=== PATIENT | male | born 1945 | race Caucasian/White ===

== ENCOUNTER 2020-02-17 11:42 | Observation (INO) ==
--- NOTE | 2020-02-17 11:59 | ERNOTE ---
Syncope ER HPI Date of Service: 02/17/20 Stated Complaint: fall Time Seen by Provider: 02/17/20 11:46 Source: patient, RN notes reviewed, past records Exam Limitations: no limitations Immunizations: IMMUNIZATION HX Immunizations Up to Date Yes History of Influenza Vaccine No Hx Pneumococcal Vaccination No Allergies/Adverse Reactions: Allergies adhesive Allergy (Severe, Verified 02/17/20 12:02) Hives pregabalin [From Lyrica] Allergy (Severe, Verified 02/17/20 12:02) Other silicone Allergy (Verified 02/17/20 12:02) benazepril [From Lotensin] Adverse Reaction (Mild, Verified 02/17/20 12:02) Other impotence cephalexin [From Keflex] Adverse Reaction (Mild, Verified 02/17/20 12:02) Diarrhea cyclobenzaprine [From Flexeril] Adverse Reaction (Mild, Verified 02/17/20 12:02) Hives Home Medications: HOME MEDICATIONS fluticasone propionate 50 mcg/actuation nasal spray,suspension 2 spray PETAR DAILY #9.9 g 09/24/18 [Last Taken Unknown] hydrocortisone 2.5 % lotion 1 applic TP BID #118 ml 03/25/19 [Last Taken Unknown] meloxicam 7.5 mg tablet 7.5 mg PO DAILY 03/25/19 [Last Taken Unknown] amlodipine 10 mg tablet 10 mg PO DAILY #90 tab 06/18/19 [Last Taken Unknown] gabapentin 300 mg capsule 300 mg PO HS #90 cap 06/18/19 [Last Taken Unknown] glipizide 5 mg tablet, extended release 24 hr 5 mg PO DAILY #90 tab 06/18/19 [Last Taken Unknown] losartan 50 mg tablet See Rx Instructions .ROUTE .COMPLEX #90 tablet 06/18/19 [Last Taken Unknown] atenolol 50 mg tablet 50 mg PO DAILY #90 tab 07/17/19 [Last Taken Unknown] metformin 500 mg tablet 500 mg PO BID #60 tab 09/13/19 [Last Taken Unknown] oxcarbazepine 300 mg tablet See Rx Instructions PO DAILY #100 tab 09/13/19 [Last Taken Unknown] - History of Present Illness Narrative: Juan R is a 74-year-old male brought to the emergency department by ambulance after a syncopal episode. He reports that he was still sitting on the toilet after having a bowel movement when he felt disoriented. He states that he could not figure out how to get the toilet paper off of the roll. He apparently then fell forward onto the floor and was briefly unconscious. He initially did not want to be transported to the hospital, but when EMS attempted to help him get up he was very weak and unsteady. He underwent an extensive plastic surgery at the [facility] on 01/26 for osteomyelitis and a wound that would not heal in his left lower leg. He is cu rrently on Augmentin and doxycycline. He reports that he has been having diarrhea but it is only once a day. He denies any head injury or headache. Prior Episodes: Present: single episode today Character of event: Present: brief (seconds) Location of Injury: Present: none Current Symptoms: Present: back to normal Prior Treament: Reports: recently seen, recently hospitalized, currently on antibiotics Review of Systems - Review of Systems Constitutional: Present: recent illness. Absent: fever, chills EYE: Absent: eye pain, vision changes ENT: Present: no symptoms reported Respiratory: Absent: shortness of breath, cough Cardiology: Present: syncope. Absent: chest pain, palpitations Gastrointestinal/Abdominal: Present: diarrhea. Absent: nausea, vomiting, abdominal pain Genitourinary: Absent: frequency, dysuria Musculoskeletal: Present: muscle pain. Absent: neck pain Skin: Absent: lumps, change in color Neurological: Absent: headache, dizziness/light-headedness, weakness Endocrine: Present: no symptoms reported Hematologic/Lymphatic: Absent: easy bruising, easy bleeding Psych: Present: no symptoms reported Medical History (Last Reviewed 02/17/20 @ 16:42 by Vira Morales NP) Cellulitis Onset Date: ~11/2017 seen in ER Anemia Onset Date: Unknown Diabetes mellitus Onset Date: Unknown Hypertension Onset Date: Unknown Hypertrophy of prostate with urinary obstruction Onset Date: 04/15/15 Obstructive sleep apnea Onset Date: Unknown Peripheral neuropathy Onset Date: Unknown Angina pectoris Onset Date: Unknown Contact dermatitis Onset Date: 06/01/13 near left naris, due to MADDIE Diaphoresis Onset Date: 01/16/15 Folliculitis Onset Date: 02/07/17 Hemorrhoids Onset Date: ~02/2010 mild internal History of chemotherapy Hx of lymphoma Hx of melanoma of skin Onset Date: ~1984 Kidney stone on left side Onset Date: ~1968 Left shoulder pain Onset Date: 07/27/15 Lymphedema Onset Date: Unknown right arm Nasal fracture Onset Date: 06/01/13 nodisplaced Thumb injury Onset Date: 01/29/15 left Trigeminal neuralgia Onset Date: Unknown Surgical History: Surgical History (Last Reviewed 02/17/20 @ 16:42 by Vira Morales NP) Cancer treatment Hemorrhoids, internal Onset Date: 03/19/10 hemorrhoid banding History of colonoscopy Onset Date: 03/19/10 normal, mild internal hemorrhoids- Dr Angelo History of lithotripsy Onset Date: ~2006 History of lymph node excision Onset Date: Unknown right axilla-1997, right cervical-1998 History of surgical removal of skin lesion Onset Date: ~1984 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 Father Hypertension Prostate cancer Pacemaker Sister Melanoma Social History: (Last Reviewed 02/17/20 @ 16:43 by Vira Morales NP) Social History: Marital status: household members: spouse number of children: 4 current occupational status: disabled Highest education level completed: Bachelor's degree Service: No Tobacco: Smoking Status: Never smoker Alcohol: alcohol intake: never Substance Use: substance use type: does not use Dietary Habits: caffeine: Yes Type: carbonated beverages Physical Exam - Physical Exam General Appearance: Present: wd/wn, alert, no apparent distress Head Exam: Present: normal inspection, no evidence of injury Eye Exam: Normal inspection: bilateral Neck: Present: normal inspection, nontender, supple, full range of motion Respiratory: Present: no respiratory distress, normal breath sounds, no accessory muscle use, lungs clear Cardiovascular/Chest: Present: regular rate, rhythm, no murmur Gastrointestinal/Abdominal: Present: nontender, nondistended, soft Neurological Exam: Present: alert, oriented, normal mood/affect, other - pre- existing motor defecit to right arm. Absent: no motor/sensory deficits Skin Exam: Present: normal color, warm/dry Progress - Results and Orders Patient's Lab Results:: I have reviewed the patient's lab results. - Vital Signs Patient's Vital Signs:: I have reviewed the patient's vital signs. Vital Signs: Vital Signs 02/17/20 11:44 Temperature 36.3 C Pulse Rate 75 Respiratory Rate 12 Blood Pressure 123/72 O2 Sat by Pulse Oximetry 97 - EKG EKG #1 EKG: NSR EKG read: Reviewed by me - CT/Ultrasound CT/Ultrasound Narrative: Head CT is without acute intracranial findings - Progress/Reassessment Chief Complaint: Fall Progress:: Unchanged Plan - Plan Plan: The patient initially had a potassium of 5.5. There was a delay in obtaining IV access and anesthesia was finally contacted to start an IV. He was given a liter of normal saline and his potassium was repeated. The level sandra to 6. Dr. Velasco was contacted and the patient will be admitted to observation status. Departure Clinical Impression: Acute hyperkalemia - Departure Disposition: Still a patient Condition: Stable Referrals: Rod Bradley MD [Primary Care Provider] -
[2020-02-17 13:20] LABS: Albumin * 3.4 gm/dl (3.4-5.0); Anion Gap 20.9 mmol/L (6.8-13.8); Bilirubin, Total 0.5 mg/dL (0.0-1.1); Ca. Corrected For Albumin 9.8 mg/dL (8.4-10.2); Calcium * 9.6 mg/dL (7.9-10.9); Carbon Dioxide 21.6 mmol/L (24-32.6); Potassium 5.5 mmol/L (3.4-4.6); Total Protein 7.8 gm/dL (6.2-8.2)
[2020-02-17 13:41] LABS: Urine Bilirubin Negative (NEGATIVE); Urine Ketone Negative (NEGATIVE); Urine Nitrite Negative (NEGATIVE); Urine Protein Negative (NEGATIVE); Urine Specific Gravity >=1.030 SP.GR. (1.005-1.030); Urine Urobilinogen Normal (NORMAL)
[2020-02-17 13:43] LABS: Hematocrit 46.9 % (42.0-52.0); Mean Corpuscular Hemoglobin 32.6 pg (27-31); Mean Platelet Volume 10.4 fl (8-11.3); Neutrophil # 5.8 K/mm3 (1.3-6.0); Neutrophil % 77.4 % (42-75.0); Platelet Count 179 K/mm3 (150-450); Red Cell Distribution Width 12.5 % (11.5-14.0); White Blood Count 7.5 K/mm3 (4.0-10.5)
[2020-02-17] MEDS ORDERED: NORMAL SALINE 1,000 ML IV ONE ×2 (13:51→18:06)
[2020-02-17 13:59] LABS: Urine Appearance Clear (CLEAR); Urine Blood 5 /ul (NEGATIVE); Urine Color Yellow
[2020-02-17 14:00] LABS: Urine Bacteria None Seen; Urine RBC TRACE /hpf (0-5); Urine WBC None Seen /hpf (0-5)
--- NOTE | 2020-02-17 15:49 | ANES ---
Anesthesia Procedure Note Procedure Note: ANESTHESIA PROCEDURE NOTE Date of Procedure: 02/17/2020 Time of procedure: 1520 p.m. Performed by: BERNARDO Diez CRNA, MSN Preprocedure diagnosis: Dehydration, hyperkalemia, lack of venous access. Post procedure diagnosis: Same. Procedure: Venipuncture for IV access. Indications: Hyperkalemia and lack of IV access. Findings: See below. Details of the procedure: The patient was prepped with Betadine and alcohol after the left wrist and hand were warmed with a warm washcloths for several minutes. A very small vein did momentarily become visible and a 24-gauge IV catheter was cannulated. The catheter flushed without resistance and Mr. Burks tolerated the procedure very well. EBL: Minimal. Fluids: N/A. Specimen: N/A. Post procedure condition: The patient tolerated the procedure well. No complications were noted. Thank you for this consultation. Carlos Govea CRNA, ARNP, MSN
--- NOTE | 2020-02-17 19:33 | HP ---
Chief Complaint - Chief Complaint Date of Service: 02/17/20 Time of Service: 19:08 Chief Complaint: Syncope with collapse. Weakness. Hyperkalemia. History of Present Illness: Juan R is a 74-year-old male brought to the emergency department by ambulance after a syncopal episode. He reports that he was still sitting on the toilet after having a bowel movement when he felt disoriented. He states that he could not figure out how to get the toilet paper off of the roll. He apparently then fell forward onto the floor and was briefly unconscious. He initially did not want to be transported to the hospital, but when EMS attempted to help him get up he was very weak and unsteady. He underwent an extensive plastic surgery at the [facility] [place] on 01/26 for osteomyelitis and a wound that would not heal in his left lower leg. He is currently on Augmentin and doxycycline. He reports that he has been having diarrhea but it is only once a day. He denies any head injury or headache. In reviewing his chart he otherwise has fairly normal lab values. His kidney function is adequate. He is taking losartan which is potassium sparing so I will hold that medicine. He is also on amlodipine for blood pressure. Medical History (Last Reviewed 02/17/20 @ 18:58 by Aggie Powers RN) Cellulitis Onset Date: ~11/2017 seen in ER Anemia Onset Date: Unknown Diabetes mellitus Onset Date: Unknown Hypertension Onset Date: Unknown Hypertrophy of prostate with urinary obstruction Onset Date: 04/15/15 Obstructive sleep apnea Onset Date: Unknown Peripheral neuropathy Onset Date: Unknown Angina pectoris Onset Date: Unknown Contact dermatitis Onset Date: 06/01/13 near left naris, due to MADDIE Diaphoresis Onset Date: 01/16/15 Folliculitis Onset Date: 02/07/17 Hemorrhoids Onset Date: ~02/2010 mild internal History of chemotherapy Hx of lymphoma Hx of melanoma of skin Onset Date: ~1984 Kidney stone on left side Onset Date: ~1968 Left shoulder pain Onset Date: 07/27/15 Lymphedema Onset Date: Unknown right arm Nasal fracture Onset Date: 06/01/13 nodisplaced Thumb injury Onset Date: 01/29/15 left Trigeminal neuralgia Onset Date: Unknown Surgical History: Surgical History (Last Reviewed 02/17/20 @ 18:58 by Aggie Powers RN) Cancer treatment Hemorrhoids, internal Onset Date: 03/19/10 hemorrhoid banding History of colonoscopy Onset Date: 03/19/10 normal, mild internal hemorrhoids- Dr Angelo History of lithotripsy Onset Date: ~2006 History of lymph node excision Onset Date: Unknown right axilla-1997, right cervical-1998 History of surgical removal of skin lesion Onset Date: ~1984 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 Father Hypertension Prostate cancer Pacemaker Sister Melanoma Social History: (Last Reviewed 02/17/20 @ 18:59 by Aggie Powers RN) Social History: Marital status: household members: spouse number of children: 4 current occupational status: disabled Highest education level completed: Bachelor's degree Service: No Tobacco: Smoking Status: Never smoker Alcohol: alcohol intake: never Substance Use: substance use type: does not use Dietary Habits: caffeine: Yes Type: carbonated beverages Review Of Systems (GEN) - Review of Systems Generalized/Overall Review: Present: Weakness EENTM: Present: No Symptoms Reported Respiratory: Present: No Symptoms Reported Cardiac: Present: Syncope - Sounds like he had a vasovagal syncopal event with collapse following a loose bowel movement. Abdominal: Present: No Symptoms Reported Genitourinary: Present: No Symptoms Reported Musculoskeletal: Present: Other - Post op pain for osteomyelitis R. LE. and R. arm surgry for melanoma excision. Neurological: Present: No Symptoms Reported Skin: Present: No Symptoms Reported Endocrine: Present: No Symptoms Reported Immunizations: IMMUNIZATION HX Immunizations Up to Date Yes History of Influenza Vaccine No Hx Pneumococcal Vaccination No Allergies/Adverse Reactions: Allergies Allergy/AdvReac Type Severity Reaction Status Date / Time adhesive Allergy Severe Hives Verified 02/17/20 12:02 pregabalin [From Lyrica] Allergy Severe Other Verified 02/17/20 12:02 silicone Allergy Verified 02/17/20 12:02 benazepril [From Lotensin] AdvReac Mild Other Verified 02/17/20 12:02 cephalexin [From Keflex] AdvReac Mild Diarrhea Verified 02/17/20 12:02 cyclobenzaprine AdvReac Mild Hives Verified 02/17/20 12:02 [From Flexeril] Home Medications: HOME MEDICATIONS fluticasone propionate 50 mcg/actuation nasal spray,suspension 2 spray PETAR DAILY #9.9 g 09/24/18 [Last Taken Unknown] hydrocortisone 2.5 % lotion 1 applic TP BID #118 ml 03/25/19 [Last Taken Unknown] meloxicam 7.5 mg tablet 7.5 mg PO DAILY 03/25/19 [Last Taken Unknown] amlodipine 10 mg tablet 10 mg PO DAILY #90 tab 06/18/19 [Last Taken Unknown] gabapentin 300 mg capsule 300 mg PO HS #90 cap 06/18/19 [Last Taken Unknown] glipizide 5 mg tablet, extended release 24 hr 5 mg PO DAILY #90 tab 06/18/19 [Last Taken Unknown] losartan 50 mg tablet See Rx Instructions .ROUTE .COMPLEX #90 tablet 06/18/19 [Last Taken Unknown] atenolol 50 mg tablet 50 mg PO DAILY #90 tab 07/17/19 [Last Taken Unknown] metformin 500 mg tablet 500 mg PO BID #60 tab 09/13/19 [Last Taken Unknown] oxcarbazepine 300 mg tablet See Rx Instructions PO DAILY #100 tab 09/13/19 [Last Taken Unknown] Exam - Exam Vital Signs: Vital Signs - Last Taken Temp 36.0 C 02/17/20 18: Pulse 68 02/17/20 18:21 Resp 17 02/17/20 18:21 BP 147/73 02/17/20 18:21 Pulse Ox 98 02/17/20 18:21 Constitutional: Present: Alert, Oriented x3, Cooperative, Well developed, Well nourished, No distress, Elderly, Obese ENT Exam: Present: normal ENT inspection Eye Exam: bilateral eye: normal inspection, PERRL, EOMI Neck: Present: non-tender, full range of motion, supple, normal inspection, trachea midline Back Exam: Present: normal inspection, no CVA tenderness, no vertebral tenderness Breasts: Present: Exam deferred, Nontender Respiratory: Present: chest non-tender, lungs clear, normal breath sounds, no respiratory distress, no accessory muscle use Cardiovascular/Chest: Present: normal peripheral pulses, regular rate, rhythm, no chest tenderness, no edema, no gallop, no JVD, no murmur, no rub Peripheral Pulses: carotid (R): 2+, carotid (L): 2+, radial (R): 2+, radial (L): 2+ Abdomen: Present: Normal bowel sounds, soft, nontender, nondistended, no rebound tenderness, no hepatospenomegaly, no masses, obese /Rectal: Present: Exam deferred, External genitalia normal Extremity: Present: normal range of motion, non-tender, normal inspection, no pedal edema, no calf tenderness, normal capillary refill Skin Exam: Present: normal color, warm/dry, no cyanosis Lymphatic: Present: no adenopathy Neurologic: Present: spray blender II-XII nml as tested, normal cerebellar test, no motor/sensory deficits, alert, normal mood/affect, oriented x 3 Appearance: Present: appropriate appearance, appropriate insight, neat, impaired recent memory - He is having trouble coming up with names for things and people occasionally. For the most part however, he seems very lucid. Eye contact: Present: cooperative, good eye contact, normal speech, avoids eye contact Thoughts: Present: normal thought pattern, no apparent hallucination Diagnostic Studies: Abnormal Lab Results 02/17/20 02/17/20 02/17/20 Range/Units 12:53 13:30 13:33 RBC 4.60 L (4.7-6.0) M/mm3 MCV 102.0 H (78-100) fl MCH 32.6 H (27-31) pg Neutrophils % 77.4 H (42-75.0) % Lymphocytes % 14.4 L (20-51) % Lymphocytes # 1.08 L (1.5-3.5) k/mm3 Potassium 5.5 H (3.4-4.6) mmol/L Carbon Dioxide 21.6 L (24-32.6) mmol/L Anion Gap 20.9 H (6.8-13.8) mmol/L BUN 30 H (6-23) mg/dL BUN/Creatinine Ratio 25.0 H (9.0-21.6) Random Glucose 179 H (70-110) mg/dL Urine Blood 5 H (NEGATIVE) /ul Calcium Oxalate Crystal Few - 1+ H (NONE) /hpf 02/17/20 Range/Units 17:36 RBC (4.7-6.0) M/mm3 MCV (78-100) fl MCH (27-31) pg Neutrophils % (42-75.0) % Lymphocytes % (20-51) % Lymphocytes # (1.5-3.5) k/mm3 Potassium 6.0 H (3.4-4.6) mmol/L Carbon Dioxide (24-32.6) mmol/L Anion Gap (6.8-13.8) mmol/L BUN (6-23) mg/dL BUN/Creatinine Ratio (9.0-21.6) Random Glucose (70-110) mg/dL Urine Blood (NEGATIVE) /ul Calcium Oxalate Crystal (NONE) /hpf Laboratory Results WBC 7.5 K/mm3 (4.0-10.5) 02/17/20 13:30 RBC 4.60 M/mm3 (4.7-6.0) L 02/17/20 13:30 Hgb 15.0 gm/dL (13.5-18.0) 02/17/20 13:30 Hct 46.9 % (42.0-52.0) 02/17/20 13:30 MCV 102.0 fl (78-100) H 02/17/20 13:30 MCH 32.6 pg (27-31) H 02/17/20 13:30 MCHC 32.0 g/dl (32-36) 02/17/20 13:30 RDW 12.5 % (11.5-14.0) 02/17/20 13:30 Plt Count 179 K/mm3 (150-450) 02/17/20 13:30 MPV 10.4 fl (8-11.3) 02/17/20 13:30 Immature Gran % (Auto) 0.40 % (0.001-0.429) 02/17/20 13:30 Immature Gran # (Auto) 0.03 K/mm3 (0.000-0.0310) 02/17/20 13:30 Neutrophils % 77.4 % (42-75.0) H 02/17/20 13:30 Lymphocytes % 14.4 % (20-51) L 02/17/20 13:30 Monocytes % 6.9 % (0.0-9) 02/17/20 13:30 Eosinophils % 0.8 % (0.0-3.0) 02/17/20 13:30 Basophils % 0.1 % (0.0-1.0) 02/17/20 13:30 Nucleated RBC % 0.0 k/mm3 (0-1) 02/17/20 13:30 Neutrophils # 5.8 K/mm3 (1.3-6.0) 02/17/20 13:30 Lymphocytes # 1.08 k/mm3 (1.5-3.5) L 02/17/20 13:30 Monocytes # 0.5 k/mm3 (0.0-1.0) 02/17/20 13:30 Eosinophils # 0.1 k/mm3 (0.0-0.7) 02/17/20 13:30 Absolute Basophils 0.0 k/mm3 (0.0-0.1) 02/17/20 13:30 Sodium 140 mmol/L (132-142) 02/17/20 12:53 Plasma Sodium 141 mmol/L (130-142) 02/17/20 12:53 Potassium 6.0 mmol/L (3.4-4.6) H 02/17/20 17:36 Chloride 103 mmol/L (97-106) 02/17/20 12:53 Carbon Dioxide 21.6 mmol/L (24-32.6) L 02/17/20 12:53 Anion Gap 20.9 mmol/L (6.8-13.8) H 02/17/20 12:53 BUN 30 mg/dL (6-23) H 02/17/20 12:53 Creatinine 1.20 mg/dL (0.4-1.4) 02/17/20 12:53 Est GFR (Non-Af Amer) 63 mL/min (60-130) 02/17/20 12:53 BUN/Creatinine Ratio 25.0 (9.0-21.6) H 02/17/20 12:53 Random Glucose 179 mg/dL (70-110) H 02/17/20 12:53 Calcium 9.6 mg/dL (7.9-10.9) 02/17/20 12:53 Calcium Adj for Albumin 9.8 mg/dL (8.4-10.2) 02/17/20 12:53 Total Bilirubin 0.5 mg/dL (0.0-1.1) 02/17/20 12:53 AST 42 U/L (0-48) 02/17/20 12:53 ALT 28 U/L (19-67) 02/17/20 12:53 Alkaline Phosphatase 120 U/L (50-170) 02/17/20 12:53 Total Protein 7.8 gm/dL (6.2-8.2) 02/17/20 12:53 Albumin 3.4 gm/dl (3.4-5.0) 02/17/20 12:53 Urine Color Yellow 02/17/20 13:33 Urine Appearance Clear (CLEAR) 02/17/20 13:33 Urine pH 5.0 pH (5.0-7.0) 02/17/20 13:33 Ur Specific [place] >=1.030 SP.GR. (1.005-1.030) 02/17/20 13:33 Urine Protein Negative mg/dL (NEGATIVE) 02/17/20 13:33 Urine Glucose (UA) Negative mg/dL (NEGATIVE) 02/17/20 13:33 Urine Ketones Negative mg/dL (NEGATIVE) 02/17/20 13:33 Urine Blood 5 /ul (NEGATIVE) H 02/17/20 13:33 Urine Nitrate Negative (NEGATIVE) 02/17/20 13:33 Urine Bilirubin Negative mg/dl (NEGATIVE) 02/17/20 13:33 Urine Urobilinogen Normal EU/dl (NORMAL) 02/17/20 13:33 Ur Leukocyte Esterase Negative /ul (NEGATIVE) 02/17/20 13:33 Urine RBC Trace /hpf (0-5) 02/17/20 13:33 Urine WBC None seen /hpf (0-5) 02/17/20 13:33 Ur Epithelial Cells Trace /hpf (0-5) 02/17/20 13:33 Calcium Oxalate Crystal Few - 1+ /hpf (NONE) H 02/17/20 13:33 Urine Bacteria None seen (NONE) 02/17/20 13:33 Urine Culture Comments No culture indicated 02/17/20 13:33 Assessment/Plan - Narrative Narrative: This is a 74-year-old white male patient of Dr. Rod Wagner MD who had a syncopal event and collapse following a BM at home. He has been on Augmentin which makes his stools loose. He is been taking probiotics but they have not helped this time. That has helped him in the past when he took cephalexin. He is currently prescribed Augmentin and doxycycline from [facility] for the postoperative treatment of infections. He had an osteomyelitis and had partial bone removal in the left lower extremity and then he has had surgery on the right arm for excision of the melanoma. Apparently there was positive mets to the axilla. He does not appear to be on chemotherapy at this time. He is taking losartan which is potassium sparing and so I will hold that for now. He does have normal renal function with an EGFR of 62. He is in no distress this evening and denies any pain or discomfort. He is hungry as he has not had anything to eat all day. - Assessment/Plan (1) Diabetic ulcer of left lower leg Problem: Acute (2) Acute hyperkalemia Problem: Acute (3) Diabetes mellitus type 2 in obese Problem: Chronic (4) Lymphedema of arm Problem: Chronic (5) Benign essential hypertension Problem: Chronic
[2020-02-17] MEDS ORDERED: FLUTICASONE PROPIONATE 120 SPRAY INHALER NS PRN (19:40)
[2020-02-17] MEDS ORDERED: OXcarbazepine 300 MG TABLET PO PRN (20:04)
[2020-02-17] MEDS: DOXYCYCLINE HYCLATE 100 MG TABLET PO SCH (20:50)
[2020-02-17] MEDS: metFORMIN HCL 500 MG TABLET PO SCH (20:50)
[2020-02-17] MEDS: [UNRECOGNIZED DRUG - OTHER] TP SCH (20:50)
[2020-02-17] MEDS: LACTOBACILLUS ACIDOPHILUS 1 EACH CAPSULE PO SCH (20:50)
[2020-02-17] MEDS ORDERED: OXcarbazepine 300 MG TABLET PO SCH (21:00)
[2020-02-17] MEDS ORDERED: GABAPENTIN 300 MG CAPSULE PO SCH (21:00)
[2020-02-18 06:30] LABS: Hematocrit 37.3 % (42.0-52.0); Mean Cell Volume 99.7 fl (78-100); Mean Corpuscular Hemoglobin 32.1 pg (27-31); Mean Corpuscular Hgb Conc 32.2 g/dl (32-36); Neutrophil # 2.7 K/mm3 (1.3-6.0); Neutrophil % 52.6 % (42-75.0); Platelet Count 169 K/mm3 (150-450); Red Blood Count 3.74 M/mm3 (4.7-6.0); Red Cell Distribution Width 12.2 % (11.5-14.0); White Blood Count 5.2 K/mm3 (4.0-10.5)
[2020-02-18 06:49] LABS: Albumin * 2.8 gm/dl (3.4-5.0); Anion Gap 16.3 mmol/L (6.8-13.8); BUN/Creatinine Ratio 19.8 (9.0-21.6); Bilirubin, Total 0.3 mg/dL (0.0-1.1); Ca. Corrected For Albumin 9.4 mg/dL (8.4-10.2); Calcium * 8.8 mg/dL (7.9-10.9); Carbon Dioxide 22.5 mmol/L (24-32.6); Potassium 4.8 mmol/L (3.4-4.6); Total Protein 6.4 gm/dL (6.2-8.2)
[2020-02-18] MEDS: AMOX TR/POTASSIUM CLAVULANATE 500 MG TABLET PO SCH ×2 (08:44→12:30)
[2020-02-18] MEDS: LACTOBACILLUS ACIDOPHILUS 1 EACH CAPSULE PO SCH (08:44)
[2020-02-18] MEDS: DOXYCYCLINE HYCLATE 100 MG TABLET PO SCH (08:45)
[2020-02-18] MEDS: metFORMIN HCL 500 MG TABLET PO SCH (08:45)
[2020-02-18] MEDS: [UNRECOGNIZED DRUG - OTHER] TP SCH (08:46)
[2020-02-18] MEDS ORDERED: amLODIPine BESYLATE 10 MG TABLET PO SCH (09:00)
[2020-02-18] MEDS ORDERED: glipiZIDE 5 MG TAB.SR.24H PO SCH (09:00)
[2020-02-18] MEDS ORDERED: OXcarbazepine 300 MG TABLET PO SCH (09:00)
[2020-02-18] MEDS ORDERED: ATENOLOL 50 MG TABLET PO SCH (09:00)
--- NOTE | 2020-02-18 12:03 | DS ---
(1) Acute hyperkalemia Diagnosis(s): will hold losartan and check BMP tomorrow as an outpatient. 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 He reported he was sitting on the toilet after having a bowel movement when he felt disoriented. He could not figure out how to get the toilet paper off of the roll. He then fell forward onto the floor and was briefly unconscious. He initially did not want to be transported to the hospital, but when EMS attempted to help him get up he was very weak and unsteady, so they transported him here. He underwent an extensive plastic surgery at the [facility] on 01/26 for osteomyelitis and a wound that would not heal in his left lower leg. He is currently on Augmentin and doxycycline. He reports that he has been having diarrhea but it is only once a day. He denies any head injury or headache. In reviewing his chart he otherwise has fairly normal lab values. His kidney function is adequate. His losartan was discontinued at this hospital admission. His vitals including BP have been stable and acceptable. His potassium at 11:30 this morning is 4.4. He may go home, remaining off his losartan. Procedures Performed: none Results and Findings: Lab Pending Results 02/17/20 12:53: Sodium 140, Plasma Sodium 141, Potassium 5.5 H, Chloride 103, Carbon Dioxide 21.6 L, Anion Gap 20.9 H, BUN 30 H, Creatinine 1.20, Est GFR (Non-Af Amer) 63, BUN/Creatinine Ratio 25.0 H, Random Glucose 179 H, Calcium 9.6, Calcium Adj for Albumin 9.8, Total Bilirubin 0.5, AST 42, ALT 28, Alkaline Phosphatase 120, Total Protein 7.8, Albumin 3.4 02/17/20 13:30: WBC 7.5, RBC 4.60 L, Hgb 15.0, Hct 46.9, MCV 102.0 H, MCH 32.6 H, MCHC 32.0, RDW 12.5, Plt Count 179, MPV 10.4, Immature Gran % (Auto) 0.40, Immature Gran # (Auto) 0.03, Neutrophils % 77.4 H, Lymphocytes % 14.4 L, Monocytes % 6.9, Eosinophils % 0.8, Basophils % 0.1, Nucleated RBC % 0.0, Neutrophils # 5.8, Lymphocytes # 1.08 L, Monocytes # 0.5, Eosinophils # 0.1, Absolute Basophils 0.0 02/17/20 13:33: Urine Color Yellow, Urine Appearance Clear, Urine pH 5.0, Ur Specific [place] >=1.030, Urine Protein Negative, Urine Glucose (UA) Negative, Urine Ketones Negative, Urine Blood 5 H, Urine Nitrate Negative, Urine Bilirubin Negative, Urine Urobilinogen Normal, Ur Leukocyte Esterase Negative, Urine RBC Trace, Urine WBC None seen, Ur Epithelial Cells Trace, Calcium Oxalate Crystal Few - 1+ H, Urine Bacteria None seen, Urine Culture Comments No culture indicated 02/17/20 17:36: Potassium 6.0 H 02/18/20 06:20: WBC 5.2 D, RBC 3.74 L, Hgb 12.0 L, Hct 37.3 L, MCV 99.7, MCH 32.1 H, MCHC 32.2, RDW 12.2, Plt Count 169, MPV 9.0, Immature Gran % (Auto) 0.20, Immature Gran # (Auto) 0.01, Neutrophils % 52.6, Lymphocytes % 32.2, Monocytes % 10.6 H, Eosinophils % 4.0 H, Basophils % 0.4, Nucleated RBC % 0.0, Neutrophils # 2.7, Lymphocytes # 1.68, Monocytes # 0.6, Eosinophils # 0.2, Absolute Basophils 0.0 02/18/20 06:20: ESR 27 H 02/18/20 06:20: Sodium 141, Plasma Sodium 141, Potassium 4.8 H, Chloride 107 H, Carbon Dioxide 22.5 L, Anion Gap 16.3 H, BUN 21, Creatinine 1.06, Est GFR (Non- Af Amer) 73, BUN/Creatinine Ratio 19.8, Random Glucose 75 D, Calcium 8.8, Calcium Adj for Albumin 9.4, Total Bilirubin 0.3, AST 25, ALT 23, Alkaline Phosphatase 105, Total Protein 6.4, Albumin 2.8 L Discharge Location: Home Disposition: Home self-care Condition: Stable Discharge Activity: Activity as tolerated Discharge Diet: Consistent carbs Referrals: Rod Bradley MD [Primary Care Provider] - Additional Patient Instructions (free text): BMP blood test tomorrow. Call if you have problems or questions. Office visit with Dr. Wagner in 1 week. Complete Home Medications List: Complete Home Medication List: hydrocortisone 2.5 % lotion 1 applic TP BID #118 ml 03/25/19 amlodipine 10 mg tablet 10 mg PO DAILY #90 tab 06/18/19 gabapentin 300 mg capsule 300 mg PO HS #90 cap 06/18/19 glipizide 5 mg tablet, extended release 24 hr 5 mg PO DAILY #90 tab 06/18/19 atenolol 50 mg tablet 50 mg PO DAILY #90 tab 07/17/19 metformin 500 mg tablet 500 mg PO BID #60 tab 09/13/19 oxcarbazepine 300 mg tablet See Rx Instructions PO DAILY #100 tab 09/13/19 Amox Tr/Potassium Clavulanate [Augmentin 500-125 Tablet] 500 mg PO BID 02/17/20 Doxycycline Hyclate [Vibratab] 100 mg PO BID 02/17/20 Fluticasone Propionate [Flonase] 2 spray INTRANASAL DAILY PRN 02/17/20 Lactobacillus Combination No.4 [Probiotic] 1 ea PO BID 02/17/20 Amox Tr/Potassium Clavulanate [Augmentin 500-125 Tablet] 500 mg PO TID tab 02/18/20 OXcarbazepine [Trileptal] 600 mg PO DAILY tab 02/18/20 Amb Orders for Discharge: Basic Metabolic Panel Time Frame: 1 Day, Facility: [facility], Location: Laboratory Forms: Patient Portal Registration
[2020-02-18 12:25] LABS: Anion Gap 12.6 mmol/L (6.8-13.8); BUN/Creatinine Ratio 18.1 (9.0-21.6); Calcium * 9.5 mg/dL (7.9-10.9); Carbon Dioxide 27.8 mmol/L (24-32.6); Estimated Creat Clear 43.7; Potassium 4.4 mmol/L (3.4-4.6)
[2020-02-18 14:54] VITALS: BP 138/45
== END 2020-02-18 14:11 | disposition home or self-care (01) ==
LOC: ER 11:42 → MS 11:42
PROVIDERS: ADMIT Family Medicine; ATTEND Allergy & Immunology